=== PATIENT | male | born 2000 | race African-American/Black ===

== ENCOUNTER 2024-03-17 16:49 | Emergency (ER) | payer MEDICAID ==
[~2024-03-17] VITALS: Ht 180.3 cm; Wt 76.0 kg
[2024-03-17 17:08] VITALS: O2SAT 100
[2024-03-17] MEDS: ACETAMINOPHEN 325MG TABLET PO ONE (18:20)
[2024-03-17] MEDS: IBUPROFEN 600MG TABLET PO ONE (18:20)
[2024-03-17 18:30] VITALS: BP 110/66; PULSE 70; RESP 16; TEMP 97.5
== END 2024-03-17 18:54 | disposition home or self-care (01) ==
LOC: ER 16:49
DX: S93.401A Sprain of unspecified ligament of right ankle, initial encounter (principal); M79.601 Pain in right arm; M25.551 Pain in right hip; V89.2XXA Person injured in unspecified motor-vehicle accident, traffic, initial encounter; Y93.89 Activity, other specified; Y92.89 Other specified places as the place of occurrence of the external cause; Y99.8 Other external cause status
CPT/HCPCS: 71045; 72170; 73030; 73060; 73090; 73100; 73560; 73590; 73600; 99284